=== PATIENT | female | born 1960 | race Caucasian/White ===

== ENCOUNTER 2025-01-23 19:31 | Emergency (ER) | payer OTHER, SELFPAY ==
--- OUTSIDE RECORDS SUMMARY | 2025-01-23 19:33 | XMS_ITS | Patient Health Record ---
Author Organization [facility] Address [address] [place] [address] Care Team Providers Care Application Development Specialist Name Role Phone Fabio Howell Primary Care Provider Reason For Referral No Information Immunizations Vaccine Route Administration Date Status Comme nts COVID-19 Moderna 1ST IM Intramuscular 06/12/2020 Administered EUA date 0. Screening reviewed and consent signed. Patient tolerated well. COVID-19 Moderna 2nd IM Intramuscular 07/10/2020 Administered Plan Of Treatment No Information Insurance Providers Payer Name Payer Address Payer Phone Subscriber Number Group Number Insured Name Patient Relationship to Insured Coverage Start Date Coverage End Date [employer] [address] JOYCE GRNAADOS [id number] Ro Gilbert Self - patient is the insured 1
[2025-01-23 19:39] VITALS: BP 145/91; PULSE 76; RESP 18; TEMP 36.6; O2SAT 100
--- NOTE | 2025-01-23 20:16 | ED_ITS ---
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 The injury is at the base of her right thumb on the dorsum of the hand. States that from time of injury she has developed redness and swelling surrounding the scratch. She is up-to-date on her tetanus vaccine. No OTC treatment prior to arrival. Related Data Home Medications ?Medication ?Instructions ?Recorded ?Confirmed ?Last Taken ?Type albuterol sulfate 90 mcg/actuation inhalation 01/23/25 Unknown History aerosol inhaler amlodipine 10 mg tablet mg 01/23/25 Unknown History budesonide-formoterol HFA 80 inhalation 01/23/25 Unkn own History mcg-4.5 mcg/actuation aerosol inhaler (Symbicort) tirzepatide (weight loss) 10 mg subcut 01/23/25 Unkno wn History mg/0.5 mL subcutaneous pen injector (Zepbound) Allergies Allergy/AdvReac Type Severity Reaction Status Date / Time No Known Allergies Allergy Verified 01/23/25 19:47 [facility] Past Medical History Medical History (Updated 01/23/25 @ 20:20 by Jenni Fraga, [facility], ) Hypertension Comments At time of signature, I have reviewed and agree with nursing past medical, surgical, social and family history unless otherwise noted. Please see nursing chart for further information. There is no relevant family history pertinent to the presenting complaint Exam Narrative: GENERAL: Well-appearing, well-nourished, and in no acute distress. HEAD: Normocephalic, atraumatic. EYES: EOMI. No redness or drainage. Conjunctivae normal. ENT: Mucous membranes pink and moist. NECK: Normal AROM. CHEST: No respiratory distress. EXTREMITIES: Normal range of motion. SKIN: Warm, dry, no rash. Capillary refill normal. Normal skin turgor. Right hand: Base of the thumb dorsal aspect there is a small puncture wound with surrounding erythema measuring 5 x 5 cm that is tender to palpation. No fluctuance, induration, or drainage noted. No red streaking noted. Distal sensation intact. Capillary refill normal. Radial pulse normal. Full range of motion of the finger without increased pain. NEURO: No focal deficits. Alert and oriented x3. Gait steady. PSYCH: Normal affect. No signs of depression or anxiety. Course Course Level of Care: Express Care Visit Vital Signs Vital signs: Vital Signs Temperature 98 F 01/23/25 19:39 Pulse Rate 76 01/23/25 19:39 Respiratory Rate 18 01/23/25 19:39 Blood Pressure 145/91 H 01/23/25 19:39 Pulse Oximetry 100 01/23/25 19:39 Oxygen Delivery Room Air 01/23/25 19:39 Temperature 98 F 01/23/25 19:39 Pulse Rate 76 01/23/25 19:39 Respiratory Rate 18 01/23/25 19:39 Blood Pressure 145/91 H 01/23/25 19:39 Pulse Oximetry 100 01/23/25 19:39 Oxygen Delivery Room Air 01/23/25 19:39 Reviewed MDM - Skin/Abscess/Foreign Bdy MDM Narrative Medical decision making narrative: 64-year-old female patient presents today with a cat scratch at the base of her right thumb, dorsal aspect 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 Upon exam, patient has 5 x 5 cm area of erythema with puncture wound in the center that is tender to palpation. She will be treated with a course of Augmentin. Vital signs stable. Strict ED precautions given. Patient is up-to-date on her tetanus vaccine. Differential Diagnosis Differential diagnosis: Likely abscess of skin or subcutaneous tissue, c ellulitis and other (Cat scratch) Critical Care Time Critical Care Time Critical Care Time: No Discharge Plan Discharge Clinical Impression: Infected cat scratch of hand Patient Disposition: Home Condition: Stable Instructions: Antibiotic Form Additional Instructions: Please take the Augmentin as prescribed until gone. Monitor the scratch on your hand for worsening symptoms such as red streaking, fever, increased swelling and redness, and go to the ER if you note any of these symptoms. Take Tylenol for pain if needed. Your blood pressure was elevated above 120/80 today at Urgent Care. This puts you above the threshold for follow up. Please schedule a followup visit with your personal physician as soon as possible, for further evaluation and treatment. Even blood pressure exceeding 120/80 may indicate pre-hypertension. Patient Language: Bulgarian Prescriptions: New amoxicillin-pot clavulanate 875-125 mg tablet 1 tablet PO Q12H 5 Days Qty: 10 0RF No Action amlodipine 10 mg tablet albuterol sulfate 90 mcg/actuation HFA aerosol inhaler INHALATION budesonide-formoterol [Symbicort] 80-4.5 mcg/actuation HFA aerosol inhaler INHALATION Zepbound 10 mg/0.5 mL pen injector SUBCUT Follow-up/Referrals: Yash,Ryan Do MD [Primary Care Provider, Unknown] Time of Disposition: 20:20
== END 2025-01-23 20:24 | disposition home or self-care (01) ==
PROVIDERS: Emergency Provider Nurse Practitioner; PCP Internal Medicine Infectious Disease
DX: S60.311A Abrasion of right thumb, initial encounter (principal); L08.9 Local infection of the skin and subcutaneous tissue, unspecified; W55.03XA Scratched by cat, initial encounter; Y99.0 Civilian activity done for income or pay; I10 Essential (primary) hypertension
CPT/HCPCS: 99203; G0463